=== PATIENT | male | born 1970 | race Caucasian/White ===

== ENCOUNTER 2020-02-24 20:26 | Emergency (ER) | payer BC, OTHER ==
--- NOTE | 2020-02-24 20:56 | EKG REPORT ---
SEVERITY:- ABNORMAL ECG - SINUS RHYTHM FIRST DEGREE AV BLOCK PROBABLE INFERIOR INFARCT, OLD : Confirmed by: Ozzy Posada MD 24-Feb-2020 20:56:14
--- NOTE | 2020-02-24 20:58 | ER Document Report ---
ED Medical Screen (RME) - General Chief Complaint: Chest Pain > 30 Stated Complaint: CHEST PAIN Time Seen by Provider: 02/24/20 20:48 Mode of Arrival: Wheelchair Information source: Patient Notes: 49-year-old male presented to ED for complaint of chest pain to the left center. He states is been going on and off since Friday. He states he did have an [place] 2 years ago. He states it is very sharp pressure and when you touch the center to the left of his chest is extremely painful. 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 He did have jaw surgery due to wisdom teeth being child. He is alert oriented respirations regular nonlabored speaking in full sentences. I have greeted and performed a rapid initial assessment of this patient. A comprehensive ED assessment and evaluation of the patient, analysis of test results and completion of medical decision making process will be conducted by an additional ED providers. TRAVEL OUTSIDE OF THE [place] IN LAST 30 DAYS: No - Related Data Allergies/Adverse Reactions: No Known Allergies Allergy (Unverified 10/21/14 12:29) Past Medical History - Social History Frequency of alcohol use: Occasional Drug Abuse: None - Past Medical History Cardiac Medical History: Reports: Hx Hypercholesterolemia GI Medical History: Reports: Hx Gastroesophageal Reflux Disease Past Surgical History: Reports: Hx Oral Surgery, Hx Orthopedic Surgery, Hx Testicular Surgery - Immunizations Hx Diphtheria, Pertussis, Tetanus Vaccination: Yes Physical Exam - Vital signs Vitals: Temp Pulse Resp BP Pulse Ox 98.0 F 92 20 134/75 H 95 02/24/20 20:34 02/24/20 20:34 02/24/20 20:34 02/24/20 20:34 02/24/20 20:34 Course - Vital Signs Vital signs: Temp Pulse Resp BP Pulse Ox 98.0 F 92 20 134/75 H 95 02/24/20 20:34 02/24/20 20:34 02/24/20 20:34 02/24/20 20:34 02/24/20 20:34
[2020-02-24 21:35] LABS: ABSOLUTE BASOPHILS # (AUTO) 0.1 10^3/uL (0.0-0.2); ABSOLUTE EOSINOPHILS # (AUTO) 0.2 10^3/uL (0.0-0.6); ABSOLUTE LYMPHOCYTES (AUTO) 3.7 10^3/uL (0.5-4.7); ABSOLUTE MONOCYTES (AUTO) 0.6 10^3/uL (0.1-1.4); ABSOLUTE NEUT (AUTO) 4.1 10^3/uL (1.7-8.2); BASOPHILS % (AUTO) 0.8 % (0-2); EOSINOPHILS % (AUTO) 2.1 % (0-6); HEMATOCRIT 43.9 % (37.9-51.0); HEMOGLOBIN 15.5 g/dL (13.5-17.0); LYMPHOCYTES % (AUTO) 42.7 % (13-45); MEAN CORPUSCULAR HEMOGLOBIN 32.9 pg (27.0-33.4); MEAN CORPUSCULAR HGB CONC 35.3 g/dL (32.0-36.0); MEAN CORPUSCULAR VOLUME 93 fl (80-97); MONOCYTES % (AUTO) 6.5 % (3-13); PLATELET COUNT 242 10^3/uL (150-450); RED BLOOD COUNT 4.72 10^6/uL (4.35-5.55); SEGMENTED NEUTROPHILS % (AUTO) 47.9 % (42-78); TOTAL CELLS COUNTED % (AUTO) 100 %; WHITE BLOOD COUNT 8.6 10^3/uL (4.0-10.5)
[2020-02-24 21:51] LABS: ALBUMIN 4.7 g/dL (3.5-5.0); ALKALINE PHOSPHATASE 67 U/L (38-126); ANION GAP 9 (5-19); ASPARTATE AMINO TRANSFERASE 23 U/L (17-59); BILIRUBIN,DIRECT 0.3 mg/dL (0.0-0.4); BILIRUBIN,TOTAL 0.7 mg/dL (0.2-1.3); BLOOD UREA NITROGEN 11 mg/dL (7-20); CALCIUM 9.6 mg/dL (8.4-10.2); CARBON DIOXIDE 28 mmol/L (22-30); CHLORIDE 100 mmol/L (98-107); GLUCOSE 97 mg/dL (75-110); POTASSIUM 4.1 mmol/L (3.6-5.0); TOTAL PROTEIN 7.4 g/dL (6.3-8.2)
--- NOTE | 2020-02-24 21:59 | RADIOLOGY REPORT (SQ) ---
EXAM DESCRIPTION: XR CHEST 2 VIEWS COMPLETED DATE/TME: 02/24/2020 20:55 CLINICAL HISTORY: 49 years, Male, Chest pain intermittently since Friday COMPARISON: None. TECHNIQUE: PA and lateral views FINDINGS: Cardiomediastinal silhouette is not enlarged. No obvious acute lung pleural bone abnormalities. IMPRESSION: No obvious acute findings in chest.
[2020-02-24] MEDS ORDERED: HYDROCODONE/ACETAMINOPHEN 5-325 MG TABLET PO ONE (23:07)
--- NOTE | 2020-02-25 01:00 | ER Document Report ---
Entered by GISELA LEES SCRIBE 02/24/20 2248 Acting as scribe for:SYEDA ELLIOTT DO ED General - General Chief Complaint: Chest Pain > 30 Stated Complaint: CHEST PAIN Time Seen by Provider: 02/24/20 20:48 Mode of Arrival: Wheelchair Information source: Patient Notes: This 49 year old male patient presents to the emergency department today with left chest pain for the past x2 days that began when driving his car. Patient states there is constant pressure and intermittent pain that can be sharp or dull. Patient reports a NM x2 years ago with x2 stents in his right coronary artery. Patient states he last visited his Ticket Printer Dr. Thakkar x1 month ago for a check-up and recently had a stress test done on a treadmill. Patient states he is on blood thinners and started medications for his DM that he was just diagnosed with. TRAVEL OUTSIDE OF THE [place] IN LAST 30 DAYS: No - Related Data Allergies/Adverse Reactions: No Known Allergies Allergy (Unverified 10/21/14 12:29) Past Medical History - General Information source: Patient - Social History Smoking Status: Current Every Day Smoker Cigarette use (# per day): Yes Frequency of alcohol use: Occasional Drug Abuse: None Family History: Reviewed & Not Pertinent - Past Medical History Cardiac Medical History: Reports: Hx Heart Attack - 2017, Hx Hypercholesterolemia Endocrine Medical History: Reports: Hx Diabetes Mellitus Type 2 GI Medical History: Reports: Hx Gastroesophageal Reflux Disease Past Surgical History: Reports: Hx Coronary Stent - x2 R artery 12/04/2017, Hx Oral Surgery, Hx Orthopedic Surgery, Hx Testicular Surgery - Immunizations Hx Diphtheria, Pertussis, Tetanus Vaccination: Yes Review of Systems - Review of Systems Constitutional: No symptoms reported EENT: No symptoms reported Cardiovascular: See HPI, Chest pain - L Respiratory: No symptoms reported Gastrointestinal: No symptoms reported Genitourinary: No symptoms reported Male Genitourinary: No symptoms reported Musculoskeletal: No symptoms reported Skin: No symptoms reported Hematologic/Lymphatic: No symptoms reported Neurological/Psychological: No symptoms reported -: Yes All other systems reviewed and negative Physical Exam - Vital signs Vitals: Temp Pulse Resp BP Pulse Ox 98.0 F 92 20 134/75 H 95 02/24/20 20:34 02/24/20 20:34 02/24/20 20:34 02/24/20 20:34 02/24/20 20:34 - General General appearance: Appears well, Alert - HEENT Head: Normocephalic, Atraumatic Eyes: Normal Pupils: PERRL - Respiratory Respiratory status: No respiratory distress Breath sounds: Normal Chest palpation: Tender - L anterior chest - Cardiovascular Rhythm: Regular Heart sounds: Normal auscultation Murmur: No - Abdominal Inspection: Obese Distension: No distension Bowel sounds: Normal Tenderness: Nontender - Extremities General upper extremity: Normal inspection, Normal ROM General lower extremity: Normal inspection, Normal ROM. No: Edema - Neurological Neuro grossly intact: Yes Cognition: Normal Orientation: AAOx4 [place] Coma Scale Eye Opening: Spontaneous [place] Coma Scale Verbal: Oriented [place] Coma Scale Motor: Obeys Commands [place] Coma Scale Total: 15 Speech: Normal Sensory: Normal - Psychological Associated symptoms: Normal affect, Normal mood - Skin Skin Temperature: Warm Skin Moisture: Dry Skin Color: Normal Course - Re-evaluation Re-evalutation: 02/25/20 01:21 MDM 49 year old male with known cad disease and reassuring workup here. 2 cardiac markers are undetectable, pain is better - and did not sound ischemia related in the first place - present for 2 days constantly. Also palpable and reproducible and better with tylenol at home. He does have tremendous risk though with known cad, smoking, hld and dm. He tells me he'll follow up with Dr. Lopez and call today. Knows return precautions as does . Both would like to follow and offered staying here for stress test or attempt at transfer to further studies and they would like to follow up which is reasonable in my opinion. - Vital Signs Vital signs: Temp Pulse Resp BP Pulse Ox 98.0 F 92 20 134/75 H 95 02/24/20 20:34 02/24/20 20:34 02/24/20 20:34 02/24/20 20:34 02/24/20 20:34 - Laboratory Result Diagrams: 02/24/20 21:18 02/24/20 21:18 Laboratory results interpreted by me: 02/24/20 21:18 Sodium 136.8 L - Diagnostic Test Radiology reviewed: Image reviewed, Reports reviewed - EKG Interpretation by Me EKG shows normal: Sinus rhythm Rate: Normal Rhythm: NSR - NSr NL [place] 79 BPM inf q waves No st elevation or depression my interpretation. Discharge - Discharge Clinical Impression: Chest wall pain CAD (coronary artery disease) Qualifiers: Coronary Disease-Associated Artery/Lesion type: [place] artery Tribe vs. transplanted heart: [place] heart Associated angina: angina presence unspecified Qualified Code(s): I25.10 - Atherosclerotic heart disease of [place] coronary artery without angina pectoris Condition: Stable Disposition: HOME, SELF-CARE Instructions: Oral Narcotic Medication ([facility]), Prilosec (Acid Pump Inhibitor) ([facility]), Chest Wall Pain ([facility]) Additional Instructions: Call Dr. Purvis in the morning today for follow up. Rest, do not drive with your dot license until you see the store receiver. Please stop smoking. Return here for chest pain, shortness of breath or other problems or concerns. Prescriptions: Hydrocodone/Acetaminophen [[place] 5-325 mg Tablet] 1 tab PO TID #12 tablet Forms: Elevated Blood Pressure, Smoking Cessation Education Referrals: NUSRAT THAKKAR MD [ACTIVE PROVISIONAL STAFF] - 02/25/20 I personally performed the services described in the documentation, reviewed and edited the documentation which was dictated to the scribe in my presence, and it accurately records my words and actions.
[2020-02-25 02:04] VITALS: BP 110/63
== END 2020-02-25 02:04 | disposition home or self-care (01) ==
LOC: ER 20:26
DX: R07.89 Other chest pain (principal); I25.10 Atherosclerotic heart disease of native coronary artery without angina pectoris; E78.5 Hyperlipidemia, unspecified; I25.2 Old myocardial infarction; F17.210 Nicotine dependence, cigarettes, uncomplicated; E11.9 Type 2 diabetes mellitus without complications; Z79.899 Other long term (current) drug therapy; Z95.5 Presence of coronary angioplasty implant and graft
CPT/HCPCS: 36415; 71046; 80053; 84484; 85025; 93005; 93010; 99285